=== PATIENT | male | born 1980 | race Asian ===

== ENCOUNTER 2025-04-09 08:43 | Emergency (ER) | payer OTHER ==
[~2025-04-09] VITALS: Ht 175.3 cm; Wt 170.0 kg
[2025-04-09 08:58] VITALS: TEMP 97.1
[2025-04-09] MEDS ORDERED: GLIP10TA17 PO (09:09)
[2025-04-09] MEDS ORDERED: METF-1211 PO (09:09)
[2025-04-09] MEDS ORDERED: OMEP-148 PO (09:09)
[2025-04-09] MEDS ORDERED: ATOR40TA71 PO (09:09)
[2025-04-09] MEDS ORDERED: INSREG SQ (09:09)
[2025-04-09] MEDS ORDERED: LISI-661 PO (09:09)
[2025-04-09] MEDS ORDERED: CICL6.1H2 IH (09:09)
[2025-04-09] MEDS ORDERED: ALBU18HF12 IH (09:09)
[2025-04-09] MEDS ORDERED: INSU100I93 SQ (09:10)
[2025-04-09 09:31] LABS: GLUCOMETER DEV NAME(LOC) ER.7; GLUCOSE,POINT OF CARE 103 MG/DL (70-110)
[2025-04-09 09:36] LABS: PLATELET COUNT (AUTO) 150 K/uL (150-450); RED BLOOD CELL COUNT(AUTO) 7.24 MIL/uL (4.50-5.90); RED CELL DISTRIBUTION WIDTH 19.2 % (11.5-14.5); WHITE BLOOD COUNT (AUTO) 7.0 K/uL (4.5-11.0)
[2025-04-09 09:45] LABS: CALCIUM, TOTAL 8.8 mg/dL (8.8-10.5); CREATININE 1.07 mg/dL (0.60-1.30); GLOMERULAR FILTR. RATE CALC > 60 mL/min (>60); GLUCOSE,RANDOM 103 mg/dL (70-110); SODIUM SERUM 139 mmol/L (136-145); UREA NITROGEN, BLOOD 19 mg/dL (7-18)
[2025-04-09 10:09] LABS: ASPARTATE AMINOTRANSFERASE 17.0 U/L (15-37); TOTAL PROTEIN, SERUM 7.9 g/dL (6.4-8.2)
[2025-04-09 10:12] LABS: APPEARANCE,URINE CLEAR (CLEAR); GLUCOSE, URINE (UA) NEGATIVE (NEGATIVE); LEUKOCYTE ESTERASE ,URINE NEGATIVE (NEGATIVE); NITRATE,URINE NEGATIVE (NEGATIVE); OCCULT BLOOD,URINE NEGATIVE (NEGATIVE); SPECIFIC GRAVITIY, URINE 1.019 (1.003-1.030)
[2025-04-09] MEDS: KETOROLAC TROMETHAMINE 60 MG/2 ML VIAL IM ONE (13:52)
[2025-04-09 14:03] VITALS: BP 141/99; PULSE 73; RESP 18; O2SAT 98
== END 2025-04-09 14:14 ==
LOC: EMS 08:52
DX: S39.011A Strain of muscle, fascia and tendon of abdomen, initial encounter (principal); G47.30 Sleep apnea, unspecified; I10 Essential (primary) hypertension; E11.9 Type 2 diabetes mellitus without complications; K80.20 Calculus of gallbladder without cholecystitis without obstruction; E66.01 Morbid (severe) obesity due to excess calories; Z79.4 Long term (current) use of insulin; Z79.51 Long term (current) use of inhaled steroids; Z79.84 Long term (current) use of oral hypoglycemic drugs; Z79.899 Other long term (current) drug therapy; X58.XXXA Exposure to other specified factors, initial encounter; Y93.89 Activity, other specified; Y92.89 Other specified places as the place of occurrence of the external cause; Y99.8 Other external cause status
CPT/HCPCS: 99285; 74176; 80048; 80076; 81003; 82962 ×2; 83690; 85025; 36415; 96372; J1885